=== PATIENT | male | born 1990 | race Caucasian/White ===

== ENCOUNTER 2021-09-03 10:55 | Emergency (ER) | payer OTHER ==
[2021-09-03 11:09] VITALS: BP 124/84
--- NOTE | 2021-09-03 11:32 | ED Physician Documentation ---
History of Present Illness - Stated complaint Stated Complaint: HEADACHES,NECK STIFNESS - Chief complaint Chief Complaint: Heent - History obtained from History obtained from: Patient - History of Present Illness Timing: How many weeks ago (1) Pain level max: 8 Pain level now: 1 - Additonal information Additional information: Patient is a 31-year-old male who presents to the emergency department with fevers 2 days ago, body aches, cough and congestion. Covid test yesterday. Has had his Covid vaccination.He states that he has had neck pain and headaches as well. States his skin feels sensitive. The symptoms resolved with Excedrin. Does not have any medical problems and takes no other medications at home. Review of Systems Nose: reports: Rhinorrhea / runny nose, Congestion Respiratory: reports: Cough GI: denies: Abdominal Pain, Nausea, Vomiting, Diarrhea Skin: denies: Rash Musculoskeletal: denies: Back pain Neurologic: reports: Headache (gradual onset, none now) PD PAST MEDICAL HISTORY - Allergies Allergies/Adverse Reactions: Allergies Allergy/AdvReac Type Severity Reaction Status Date / Time No Known Drug Allergies Allergy Verified 09/03/21 11:09 PD ED PE NORMAL - Vitals Vital signs reviewed: Yes - General General: Alert and oriented X 3, No acute distress, Well developed/nourished - HEENT HEENT: Atraumatic, PERRL, Ears normal, Moist mucous membranes, Pharynx benign - Neck Neck: Supple, no meningeal sign (FROM without pain. no meningeal signs) - Cardiac Cardiac: RRR - Respiratory Respiratory: No respiratory distress, Clear bilaterally - Abdomen Abdomen: Soft, Non tender, Non distended - Derm Derm: Warm and dry - Extremities Extremities: No edema - Neuro Neuro: Alert and oriented X 3 - Psych Psych: Normal mood, Normal affect Results - Vitals Vitals: Vital Signs - 24 hr 09/03/21 11:05 Temperature 36.6 C Heart Rate 89 Respiratory 15 Rate Blood Pressure 124/84 H O2 Saturation 99 Oxygen O2 Source Room air PD MEDICAL DECISION MAKING - ED course Complexity details: considered differential, d/w patient ED course: Patient with what appears to be Covid-like symptoms. His test should be back later today. He will quarantine at home. No evidence of encephalitis, meningitis. No indication for lumbar puncture or further testing. Normal vital signs. Patient counseled regarding signs and symptoms for which I believe and urgent re-evaluation would be necessary. Patient with good understanding of and agreement to plan and is comfortable going home at this time This document was made in part using voice recognition software. While efforts are made to proofread this document, sound alike and grammatical errors may occur. Departure - Departure Disposition: 01 Home, Self Care Clinical Impression: Viral URI Condition: Good Instructions: ED Viral Syndrome Follow-Up: your,doctor as needed [Other] Comments: Drink plenty of fluids and rest. I suspect that your Covid test will likely be positive. Continue Motrin, Tylenol or Excedrin as needed. Return if you worsen.
== END 2021-09-03 11:44 | disposition home or self-care (01) ==
LOC: ED 10:55
DX: J06.9 Acute upper respiratory infection, unspecified (principal); Z20.822 Contact with and (suspected) exposure to COVID-19
CPT/HCPCS: 99282; 99283

== ENCOUNTER 2021-09-04 17:42 | Emergency (ER) | payer OTHER ==
--- NOTE | 2021-09-04 18:15 | ED Physician Documentation ---
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 He is been tested twice for Covid, both negative. He is short of breath. No sick contacts or recent travel. Review of Systems Constitutional: reports: Fever, Chills, Fatigue Ears: denies: Ear pain Nose: reports: Rhinorrhea / runny nose Throat: reports: Sore throat PD PAST MEDICAL HISTORY - Past Medical History Past Medical History: No - Past Surgical History Past Surgical History: No - Present Medications Home Medications: Ambulatory Orders Medication Instructions Recorded Confirmed Amoxicillin 1,000 mg PO TID #60 cap 09/04/21 - Allergies Allergies/Adverse Reactions: Allergies Allergy/AdvReac Type Severity Reaction Status Date / Time No Known Drug Allergies Allergy Verified 09/04/21 17:53 - Social History Does the pt smoke?: No Smoking Status: Never smoker Does the pt drink ETOH?: Yes Does the pt have substance abuse?: No - Immunizations Immunizations are current?: Yes - POLST Patient has POLST: No PD ED PE NORMAL - Vitals Vital signs reviewed: Yes - General General: Alert and oriented X 3, No acute distress - HEENT HEENT: PERRL, EOMI - Neck Neck: Supple, no meningeal sign, No bony TTP - Cardiac Cardiac: RRR, No murmur - Respiratory Respiratory: No respiratory distress, Clear bilaterally - Abdomen Abdomen: Non tender - Back Back: No CVA TTP, No spinal TTP - Derm Derm: Normal color, Warm and dry - Neuro Neuro: Alert and oriented X 3, Normal speech Results - Vitals Vitals: Vital Signs - 24 hr 09/04/21 17:54 Temperature 38.1 C H Heart Rate 116 H Respiratory 20 Rate Blood Pressure 123/72 O2 Saturation 97 Oxygen O2 Source Room air PD MEDICAL DECISION MAKING - ED course ED course: 31-year-old gentleman with persistent cough now with blood-tinged sputum and fever, 2 neg Covid test but chest x-ray showing a retrocardiac pneumonia treated with high-dose amoxicillin. Departure - Departure Disposition: 01 Home, Self Care Clinical Impression: Pneumonia Qualifiers: Pneumonia type: due to unspecified organism Laterality: left Lung location: lower lobe of lung Qualified Code(s): J18.9 - Pneumonia, unspecified organism Condition: Good Record reviewed to determine appropriate education?: Yes Instructions: Pneumonia Dc Prescriptions: Amoxicillin 1,000 mg PO TID #60 cap Comments: Your prescription was sent electronically to [facility] in [place]. They have limited hours tomorrow, from 9-5. Return for new or worsening symptoms. Follow-up with your doctor next week. For your information your chest x-ray showed a retrocardiac density consistent w ith a pneumonia.
--- NOTE | 2021-09-04 19:09 | XRAY Report ---
PROCEDURE: Chest 2 View X-Ray INDICATIONS: cough TECHNIQUE: 2 view(s) of the chest. COMPARISON: None. FINDINGS: Surgical changes and devices: None. Lungs and pleura: Mild increased retrocardiac opacity. Mediastinum: Mediastinal contours are normal. Heart size is normal. Bones and chest wall: No suspicious bony abnormalities. Soft tissues appear unremarkable. IMPRESSION: Mild increased retrocardiac opacity suggestive of pneumonia. Reviewed by: Bridgett Wheeler MD on 09/04/2021 7:08 PM [facility] Approved by: Bridgett Wheeler MD on 09/04/2021 7:08 PM [facility] Station ID: [id number]
[2021-09-04] MEDS ORDERED: AMOXICILLIN 250 MG CAPSULE PO STA (19:12)
[2021-09-04 19:28] VITALS: BP 112/65
== END 2021-09-04 19:28 | disposition home or self-care (01) ==
LOC: ED 17:42
DX: J18.9 Pneumonia, unspecified organism (principal)
CPT/HCPCS: 71046; 99283; A9270